=== PATIENT | male | born 1985 | race Two or more races ===

== ENCOUNTER 2020-03-27 22:23 | Inpatient (IN) | payer OTHER ==
[~2020-03-27] VITALS: Ht 177.8 cm; Wt 117.8 kg
[2020-03-28 00:53] LABS: Basophils # (auto) 0 10 ^3/uL (0-0.2); Basophils % (auto) 0.2 % (0.0-2.0); Eosinophils # (auto) 0.2 10 ^3/uL (0-0.8); Eosinophils % (auto) 1.4 % (0.0-7.0); Hematocrit 43.7 % (41.0-53.0); Hemoglobin 14.4 g/dL (13.5-17.5); Lymphocytes # (auto) 0.9 10 ^3/uL (0.4-5.4); Lymphocytes % (auto) 7.4 % (10.0-50.0); Mean Corpuscular Volume 84.9 fL (80.0-100.0); Monocytes # (auto) 1.1 10 ^3/uL (0-1.3); Monocytes % (auto) 8.8 % (0.0-12.0); Neutrophils # (auto) 9.8 10 ^3/uL (1.6-8.6); Neutrophils % (auto) 82.2 % (37.0-80.0); Nucleated Red Blood Cells % 0.1 %; Platelet Count (auto) 382 10^3/uL (140-450); Red Blood Cells 5.14 10^6/uL (4.5-5.90); Red Cell Distribution Width 13.6 % (11.8-14.3); White Blood Cell 11.9 10^3/uL (4.4-10.8)
[2020-03-28] MEDS ORDERED: DOXYCYCLINE 100 MG TAB/CAP PO ONE (01:00)
[2020-03-28] MEDS ORDERED: ASCORBIC ACID 500 MG TAB PO ONE (01:00)
[2020-03-28] MEDS ORDERED: cefTRIAXone 1GM/50ML D5W 50 ML IV ONE (01:00)
[2020-03-28] MEDS ORDERED: methylPREDNISolone SOD SUCC 125 MG/2 ML VL IV ONE (01:00)
[2020-03-28] MEDS ORDERED: SODIUM CHLORIDE 0.9% 1,000 ML IV ONE ×2 (01:00)
[2020-03-28 01:09] LABS: Albumin 2.2 g/dL (3.4-5.0); BUN/Creatinine Ratio 14.5; Calcium 7.8 mg/dL (8.5-10.1); Potassium 3.7 mmol/L (3.5-5.1)
[2020-03-28 01:14] LABS: Bilirubin, Total 0.8 mg/dL (0.2-1.0); Total Protein 7.2 g/dL (6.4-8.2)
[2020-03-28 01:17] LABS: INR 1.24 (0.9-1.15); Partial Thromboplastin Time 24.8 sec (23.0-31.2)
[2020-03-28 01:23] LABS: Urine Bacteria FEW /hpf (None Seen); Urine Blood Negative /uL (Negative); Urine Hyaline Cast FEW /lpf (0 - 2); Urine Mucus FEW (None Seen); Urine Specific Gravity 1.022 (1.001-1.035); Urine WBC 3 /hpf (0 - 3)
[2020-03-28] MEDS ORDERED: ASPirin 81 mg TAB PO ONE (01:45)
[2020-03-28 02:54] LABS: Alcohol, Urine < 3.0 mg/dL (0-10); Amphetamine Screen, Urine NEGATIVE (NEGATIVE); Barbiturate Scree,Urine NEGATIVE (NEGATIVE); Benzodiazephine Screen, Urine NEGATIVE (NEGATIVE); Cannabinoid Screen, Urine NEGATIVE (NEGATIVE); Cocaine Screen, Urine NEGATIVE (NEGATIVE); Opiate Scree,Urine NEGATIVE (NEGATIVE); Phencyclidine Screen, Urine NEGATIVE (NEGATIVE)
[2020-03-28 02:56] LABS: Magnesium 2.5 mg/dL (1.6-2.6)
[2020-03-28] MEDS ORDERED: IOHEXOL 350 MG/ML 100ML IJ ONE (03:02)
[2020-03-28 03:23] LABS: CRP High Sensitivity > 19 mg/dL (< 0.3); Lactate Dehydrogenase 810 U/L (87-241)
[2020-03-28] MEDS ORDERED: DOCUSATE SOD 100 MG CAP PO PRN (06:00)
[2020-03-28] MEDS ORDERED: ACETAMINOPHEN 325 MG TAB PO PRN (06:00)
[2020-03-28] MEDS ORDERED: NITROGLYCERIN 0.4 MG SL TAB SL PRN (06:00)
[2020-03-28] MEDS ORDERED: HYDROcodone-ACET 5/325MG TAB PO PRN (06:00)
[2020-03-28] MEDS ORDERED: MORPHINE SULFATE 4 MG/ML SYR/VIAL IV PRN (06:00)
[2020-03-28] MEDS ORDERED: MORPHINE SULF INJ 2 MG/ML SYRINGE 1ML IV PRN (06:00)
[2020-03-28] MEDS ORDERED: ONDANSETRON HCL 4 MG/2 ML VIAL IV PRN (06:00)
[2020-03-28] MEDS: SODIUM CHLOR 0.9% PF (SALINE LOCK) 10ML VIAL/SYR IV SCH ×3 (07:25→21:46)
[2020-03-28 08:11] LABS: Basophils # (auto) 0 10 ^3/uL (0-0.2); Basophils % (auto) 0.1 % (0.0-2.0); Eosinophils # (auto) 0 10 ^3/uL (0-0.8); Eosinophils % (auto) 0.2 % (0.0-7.0); Hematocrit 42.5 % (41.0-53.0); Lymphocytes # (auto) 0.6 10 ^3/uL (0.4-5.4); Lymphocytes % (auto) 5.3 % (10.0-50.0); Mean Corpuscular Volume 85.1 fL (80.0-100.0); Monocytes # (auto) 0.6 10 ^3/uL (0-1.3); Monocytes % (auto) 5.2 % (0.0-12.0); Neutrophils # (auto) 10.3 10 ^3/uL (1.6-8.6); Neutrophils % (auto) 89.2 % (37.0-80.0); Nucleated Red Blood Cells % 0.1 %; Platelet Count (auto) 353 10^3/uL (140-450); Red Cell Distribution Width 13.5 % (11.8-14.3); White Blood Cell 11.5 10^3/uL (4.4-10.8)
[2020-03-28 08:33] LABS: Albumin 2.1 g/dL (3.4-5.0); BUN/Creatinine Ratio 15.8; Calcium 7.8 mg/dL (8.5-10.1); Potassium 3.8 mmol/L (3.5-5.1)
[2020-03-28 08:38] LABS: Bilirubin, Total 0.7 mg/dL (0.2-1.0); Total Protein 7.1 g/dL (6.4-8.2)
--- NOTE | 2020-03-28 09:00 | NUR ---
Telemetry admit from [facility] admitted to Telemetry unit. Patient oriented to [facility], primary RN, unit, room, bed, and unit policies regarding patient care. Patient able to nod yes and no for simple questions but unable to formulate words or write. Neuro assessment completed and no other deficits noted. Patient on continuous telemetry monitoring, tele box #22 and telemetry reading on arrival to unit is SR 96BPM. Patient on 10L oxygen via simple mask with o2 saturation at 88% and sustaining, patients oxygen increased to 12L for a 91%spo2, weighed by bedscale and encouraged to call if they need something. All questions and concerns addressed, patient verbalized understanding. Note:
[2020-03-28 09:06] VITALS: BP 114/73
--- NOTE | 2020-03-28 09:15 | NUR ---
Patient noted to be cold to touch and diaphoretic, patient denies any dizziness/chills/pain/chest pain. Full assessment completed. Refer to interventions. Patient on 12L mask, with oxygen saturation at 90%,, BP 114/73, HR: 96BPM, RR:18BPM, 97.9T, BS:176
[2020-03-28 10:00] VITALS: BP 114/73
[2020-03-28] MEDS ORDERED: ENOXAPARIN SOD 40 MG/0.4 ML SYRINGE SC SCH (10:00)
[2020-03-28] MEDS: PANTOPRAZOLE 40 MG/10 ML VIAL INJ IV SCH (10:10)
[2020-03-28] MEDS: MULTIPLE VITAMIN TAB PO SCH (10:10)
[2020-03-28] MEDS: ZINC SULFATE 220mg CAP or TAB PO SCH (10:10)
[2020-03-28] MEDS: AZITHROMYCIN 500MG/ 250ML 250 ML IV SCH (10:10)
[2020-03-28] MEDS: ASCORBIC ACID 500 MG TAB PO SCH ×2 (10:10→21:46)
--- NOTE | 2020-03-28 10:30 | NUR ---
EMERGENCY CONTACT Per patients wishes information will be given to girlfriend Yady long and Yady [phone] will relay information to patients sisters.
[2020-03-28 12:26] VITALS: BP 106/70
--- NOTE | 2020-03-28 12:28 | NUR ---
Dr. Peters at bed side. New orders received. Refer to order hx.
[2020-03-28] MEDS ORDERED: REMDESIVIR PER PHARMACY IV SCH (12:30)
[2020-03-28] MEDS ORDERED: DexAMETHasone SOD PHOS 10MG/1ML VIAL INJ IV ONE (12:45)
[2020-03-28] MEDS ORDERED: CHOLECALCIFEROL (VITD3) 2,000 UNIT CAP PO ONE (12:45)
[2020-03-28] MEDS ORDERED: BUDESONIDE (INHALATION) 0.5 MG/2 ML NEB NEB ONE (13:00)
[2020-03-28] MEDS ORDERED: ENOXAPARIN SOD 40 MG/0.4 ML SYRINGE SC ONE (13:15)
[2020-03-28] MEDS ORDERED: methylPREDNISolone SOD SUCC 40 MG/ML VL IV SCH (14:00)
[2020-03-28] MEDS: ALBUTEROL SULF HFA 90MCG INH 200DOSE IN SCH ×2 (14:13→21:46)
--- NOTE | 2020-03-28 15:10 | NUR ---
MD Peters aware of wishes for tx- per MD, "patient is not stable for transfer" Will update family.
--- NOTE | 2020-03-28 15:10 | NUR ---
Received call from steven Conteh, family requesting transfer to [place] Will place MD to notify of patients family wishes
[2020-03-28] MEDS ORDERED: REMDESIVIR 200 MG in NS 210ml LOADING DOSE ADULT IV ONE (17:00)
[2020-03-28 17:20] VITALS: BP 121/93
--- NOTE | 2020-03-28 18:43 | NUR ---
Patient able to speak at this time, pt states, "My voice is coming back slowly".
--- NOTE | 2020-03-28 19:10 | NUR ---
Remdesivir pre vs:109/70, HR:88bpm, RR:20bpm, 90%spo2 15min post vs 101/68, HR:89BPM, RR:20, 91%spo2 post vs:101/66, HR:88BPM, RR:18BPM, 92%spo2
--- NOTE | 2020-03-28 20:15 | NUR ---
Opening Shift Note Assumed care of patient, awake and alert. No S/S of distress/SOB or pain. Pt saturating at 92% on 15L nonrebreather. Pt states that he feels much better. Pt seen with Dr. Harding, neuro checks preformed no S/S of neurological concern per Dr. Harding. Pt able to speak clearly, obey commands and communicate easily. Safety measures in place, bed in lowest locked position, bed rails raised x2, call light within reach. All needs addressed at this time. Instructed on POC and to call for assist PRN, will continue to monitor for changes Q1hr and PRN.
[2020-03-28] MEDS ORDERED: LORazepam 2MG/ML-1ML VIAL IV PRN (21:45)
[2020-03-28] MEDS: BUDESONIDE (INHALATION) 180 MCG IH IN SCH (21:46)
[2020-03-28] MEDS: ENOXAPARIN SOD 80 MG/0.8ML SYRINGE SC SCH (21:47)
[2020-03-28 22:00] VITALS: BP 97/51
[2020-03-28] MEDS ORDERED: BUDESONIDE (INHALATION) 0.5 MG/2 ML NEB NEB SCH (22:00)
[2020-03-28] MEDS ORDERED: PATIENTS OWN MEDICATION (PULMICORT 360 MCG) INH SCH (22:00)
[2020-03-29] VITALS (11 sets, daily range): BP systolic 97–106; BP diastolic 51–69
--- NOTE | 2020-03-29 05:08 | NUR ---
O2 delivery titrated down from 15L to 10L nonrebreather, pt tolerating well, saturating at 97% at this time. Will continue to monitor.
[2020-03-29] MEDS: SODIUM CHLOR 0.9% PF (SALINE LOCK) 10ML VIAL/SYR IV SCH ×3 (05:33→21:43)
[2020-03-29] MEDS: BUDESONIDE (INHALATION) 180 MCG IH IN SCH ×2 (06:46→21:31)
[2020-03-29] MEDS: ALBUTEROL SULF HFA 90MCG INH 200DOSE IN SCH ×3 (06:46→21:31)
[2020-03-29 08:03] LABS: Basophils # (auto) 0 10 ^3/uL (0-0.2); Eosinophils # (auto) 0 10 ^3/uL (0-0.8); Hemoglobin 12.9 g/dL (13.5-17.5); Mean Corpuscular Hemoglobin 27.6 pg (28.0-32.0)
[2020-03-29 08:05] LABS: Hematocrit 40.4 % (41.0-53.0); Lymphocytes # (auto) 1.4 10 ^3/uL (0.4-5.4); Lymphocytes % (auto) 7.9 % (10.0-50.0); Mean Corpuscular Hgb Conc. 31.9 g/dL (32.0-36.0); Mean Corpuscular Volume 86.4 fL (80.0-100.0); Monocytes # (auto) 2.1 10 ^3/uL (0-1.3); Monocytes % (auto) 11.4 % (0.0-12.0); Neutrophils # (auto) 14.6 10 ^3/uL (1.6-8.6); Neutrophils % (auto) 80.7 % (37.0-80.0); Platelet Count (auto) 490 10^3/uL (140-450); Red Blood Cells 4.68 10^6/uL (4.5-5.90); Red Cell Distribution Width 13.7 % (11.8-14.3); White Blood Cell 18.1 10^3/uL (4.4-10.8)
[2020-03-29 08:29] LABS: Potassium 4.4 mmol/L (3.5-5.1)
[2020-03-29 08:37] LABS: BUN/Creatinine Ratio 26.6; Bilirubin, Total 0.5 mg/dL (0.2-1.0); Calcium 8.2 mg/dL (8.5-10.1); Total Protein 6.5 g/dL (6.4-8.2)
[2020-03-29] MEDS: PANTOPRAZOLE 40 MG/10 ML VIAL INJ IV SCH (09:00)
[2020-03-29] MEDS: MULTIPLE VITAMIN TAB PO SCH (09:00)
[2020-03-29] MEDS: ASCORBIC ACID 500 MG TAB PO SCH ×2 (09:00→21:54)
[2020-03-29] MEDS: ZINC SULFATE 220mg CAP or TAB PO SCH (09:00)
[2020-03-29] MEDS: AZITHROMYCIN 500MG/ 250ML 250 ML IV SCH (09:00)
[2020-03-29] MEDS: CHOLECALCIFEROL (VITD3) 2,000 UNIT CAP PO SCH (09:00)
[2020-03-29] MEDS: ENOXAPARIN SOD 80 MG/0.8ML SYRINGE SC SCH ×2 (09:00→21:55)
[2020-03-29] MEDS: DexAMETHasone SOD PHOS 10MG/1ML VIAL INJ IV SCH (10:24)
--- NOTE | 2020-03-29 12:40 | NUR ---
at bed side.
--- NOTE | 2020-03-29 13:59 | NUR ---
Respiratory note: TOOK PATIENT OFF NRB AND PLACED ON 10L OXYMIZER SPO2 95%
[2020-03-29] MEDS ORDERED: REMDESIVIR 100mg in NS 230ml DAILYx4DAYS (NO VENT) IV SCH (17:00)
--- NOTE | 2020-03-29 19:00 | NUR ---
Opening Shift Note Assumed care of patient, awake and alert. No S/S of distress/SOB or pain. Instructed on POC and to call for assist PRN, will continue to monitor for changes Q1hr and PRN. Patient in the lowest possible position with call light within reach. Bed rails up x2.
[2020-03-29] MEDS ORDERED: REMDESIVIR 100mg in NS 230ml DAILYx4DAYS (NO VENT) IV ONE (19:30)
--- NOTE | 2020-03-29 20:45 | NUR ---
Dr. Harding at bedside, no new orders.
--- NOTE | 2020-03-29 22:30 | NUR ---
Remdesivir Pre vital signs- BP 111/64, heart rate 84, pulse ox 93% 15 minutes- Bp 87/35, heart rate 76, pulse ox 93% infusion slowed down to 125ml/hr, patient repositioned and vitals rechecked after 15 minutes, vitals reading 91/62, heart rate 66, pulse ox 92%, Dr Cavanaugh at bedtime and put one time order for 500ml NS bolus and recheck before restarting. Bolus given to patient. Rechecked after bolus: Bp 106/66, heart rate 79, pulse ox 94% Remdesivir restarted at 125ml/hr. Patient vitals taken 15 minutes after restart, Bp 100/56, heart rate 70, pulse ox 92% Continued to monitor patient. Vitals signs post infusion Bp 114/77, heart rate 66, pulse ox 93%.
--- NOTE | 2020-03-29 23:30 | NUR ---
Dr. Cavanaugh at bedside. Patient currently receiving remdesivir with a low blood pressure of 87/35, 500 ml NS bolus to be given and pressure rechecked to finish the medication, will carry out orders.
[2020-03-29] MEDS ORDERED: SODIUM CHLORIDE 0.9% 500 ML IV ONE (23:45)
[2020-03-30 05:00] VITALS: BP 122/72
[2020-03-30 06:24] LABS: Basophils # (auto) 0 10 ^3/uL (0-0.2); Eosinophils # (auto) 0 10 ^3/uL (0-0.8); Eosinophils % (auto) 0.3 % (0.0-7.0); Monocytes # (auto) 1.2 10 ^3/uL (0-1.3); Nucleated Red Blood Cells % 0.1 %; White Blood Cell 11.7 10^3/uL (4.4-10.8)
[2020-03-30 06:27] LABS: Basophils % (auto) 0.2 % (0.0-2.0); Hemoglobin 12.6 g/dL (13.5-17.5); Lymphocytes # (auto) 1.7 10 ^3/uL (0.4-5.4); Lymphocytes % (auto) 14.2 % (10.0-50.0); Mean Corpuscular Hemoglobin 27.9 pg (28.0-32.0); Mean Corpuscular Hgb Conc. 32.2 g/dL (32.0-36.0); Mean Corpuscular Volume 86.4 fL (80.0-100.0); Monocytes % (auto) 10.2 % (0.0-12.0); Neutrophils # (auto) 8.8 10 ^3/uL (1.6-8.6); Neutrophils % (auto) 75.1 % (37.0-80.0); Platelet Count (auto) 477 10^3/uL (140-450); Red Blood Cells 4.51 10^6/uL (4.5-5.90); Red Cell Distribution Width 14.1 % (11.8-14.3)
[2020-03-30 06:43] LABS: Calcium 7.7 mg/dL (8.5-10.1); Potassium 4.1 mmol/L (3.5-5.1)
[2020-03-30 06:46] LABS: Albumin 2.1 g/dL (3.4-5.0); BUN/Creatinine Ratio 25.7
[2020-03-30 06:49] LABS: Bilirubin, Total 0.4 mg/dL (0.2-1.0); Total Protein 6.4 g/dL (6.4-8.2)
[2020-03-30] MEDS: ALBUTEROL SULF HFA 90MCG INH 200DOSE IN SCH ×3 (06:49→22:59)
[2020-03-30] MEDS: BUDESONIDE (INHALATION) 180 MCG IH IN SCH ×2 (06:49→22:58)
[2020-03-30] MEDS: SODIUM CHLOR 0.9% PF (SALINE LOCK) 10ML VIAL/SYR IV SCH ×3 (07:00→22:11)
[2020-03-30 09:00] VITALS: BP 104/68
[2020-03-30] MEDS: DexAMETHasone SOD PHOS 10MG/1ML VIAL INJ IV SCH (10:03)
[2020-03-30] MEDS: PANTOPRAZOLE 40 MG/10 ML VIAL INJ IV SCH (10:03)
[2020-03-30] MEDS: ZINC SULFATE 220mg CAP or TAB PO SCH (10:04)
[2020-03-30] MEDS: CHOLECALCIFEROL (VITD3) 2,000 UNIT CAP PO SCH (10:04)
[2020-03-30] MEDS: MULTIPLE VITAMIN TAB PO SCH (10:04)
[2020-03-30] MEDS: AZITHROMYCIN 500MG/ 250ML 250 ML IV SCH (10:04)
[2020-03-30] MEDS: ASCORBIC ACID 500 MG TAB PO SCH ×2 (10:04→22:15)
[2020-03-30] MEDS: ENOXAPARIN SOD 80 MG/0.8ML SYRINGE SC SCH ×2 (10:04→22:15)
--- NOTE | 2020-03-30 12:00 | NUR ---
DR. NASCIMENTO AT BED SIDE
[2020-03-30 13:00] VITALS: BP 103/60
--- NOTE | 2020-03-30 15:00 | NUR ---
o2 titrated down to 8L via oxymizer, saturations maintaining >93%
[2020-03-30 17:00] VITALS: BP 107/74
[2020-03-30] MEDS: REMDESIVIR 100mg in NS 230ml DAILYx4DAYS (NO VENT) IV SCH (17:16)
--- NOTE | 2020-03-30 18:15 | NUR ---
Remdesivir pre vs:107/67, HR:70bpm, RR:20bpm, 94%spo2 15min post vs 106/73, HR:72BPM, RR:18, 94%spo2 post vs:105/66, HR:88BPM, RR:18BPM, 95%spo2
[2020-03-30 22:00] VITALS: BP 103/66
[2020-03-31 05:00] VITALS: BP 108/77
[2020-03-31] MEDS: ALBUTEROL SULF HFA 90MCG INH 200DOSE IN SCH ×3 (06:31→22:00)
[2020-03-31] MEDS: BUDESONIDE (INHALATION) 180 MCG IH IN SCH ×2 (06:31→22:00)
[2020-03-31 09:00] VITALS: BP 87/61
--- NOTE | 2020-03-31 10:30 | NUR ---
Patient family updated.
[2020-03-31] MEDS: PANTOPRAZOLE 40 MG/10 ML VIAL INJ IV SCH (10:59)
[2020-03-31] MEDS: DexAMETHasone SOD PHOS 10MG/1ML VIAL INJ IV SCH (10:59)
[2020-03-31] MEDS: AZITHROMYCIN 500MG/ 250ML 250 ML IV SCH (10:59)
[2020-03-31] MEDS: ZINC SULFATE 220mg CAP or TAB PO SCH (11:00)
[2020-03-31] MEDS: MULTIPLE VITAMIN TAB PO SCH (11:00)
[2020-03-31] MEDS: ENOXAPARIN SOD 80 MG/0.8ML SYRINGE SC SCH ×2 (11:00→22:31)
[2020-03-31] MEDS: CHOLECALCIFEROL (VITD3) 2,000 UNIT CAP PO SCH (11:00)
[2020-03-31] MEDS: ASCORBIC ACID 500 MG TAB PO SCH ×2 (11:00→22:31)
[2020-03-31] MEDS: SODIUM CHLOR 0.9% PF (SALINE LOCK) 10ML VIAL/SYR IV SCH ×3 (11:01→22:30)
--- NOTE | 2020-03-31 12:30 | NUR ---
Patient family updated.
[2020-03-31 13:00] VITALS: BP 94/52
--- NOTE | 2020-03-31 14:32 | NUR ---
Nutrition Assessment Note please see attached link for complete assessment Est [employer] needs ABW 100 [id number] kcals (17-20 kcal/kgABW), Est Protein needs: 100-111 gms/day (1.0-1.1 gm/kgABW). Will continue to monitor and reassess prn. Addendum: 03/31/20 at [address] Amended: Links added.
--- NOTE | 2020-03-31 16:00 | NUR ---
Respiratory note: Respiratory note: MDI MISSED DUE TO NO THERAPIST AVAILABLE. PT IN NO DISTRESS AT THIS TIME. PT AWARE TO HAVE RT PAGED IF SOB.
[2020-03-31 17:00] VITALS: BP 96/57
[2020-03-31] MEDS: REMDESIVIR 100mg in NS 230ml DAILYx4DAYS (NO VENT) IV SCH (17:08)
--- NOTE | 2020-03-31 19:05 | NUR ---
Opening Shift Note Assumed care of patient, awake and alert. No S/S of distress/SOB or pain. Safety measures in place, bed in lowest locked position, bed rails raised x2, call light within reach. All needs addressed at this time. Pt saturating at 92% on 8L oxymizer. Instructed on POC and to call for assist PRN, will continue to monitor for changes Q1hr and PRN.
--- NOTE | 2020-03-31 20:00 | NUR ---
Dr. Harding at bedside. Spoke with patient regarding CT results. No new orders received at this time.
[2020-03-31] MEDS: SODIUM CHLORIDE 0.9% 1,000 ML IV SCH (21:00)
[2020-04-01 02:53] VITALS: BP 96/57
[2020-04-01] MEDS: SODIUM CHLOR 0.9% PF (SALINE LOCK) 10ML VIAL/SYR IV SCH ×3 (05:30→21:30)
[2020-04-01 06:00] VITALS: BP 96/62
[2020-04-01] MEDS: ALBUTEROL SULF HFA 90MCG INH 200DOSE IN SCH ×3 (06:13→21:57)
[2020-04-01] MEDS: BUDESONIDE (INHALATION) 180 MCG IH IN SCH ×2 (06:14→21:57)
[2020-04-01] MEDS: SODIUM CHLORIDE 0.9% 1,000 ML IV SCH ×2 (07:02→16:07)
[2020-04-01 07:20] LABS: Eosinophils # (auto) 0.1 10 ^3/uL (0-0.8); Hemoglobin 13.7 g/dL (13.5-17.5); Lymphocytes # (auto) 2.2 10 ^3/uL (0.4-5.4)
[2020-04-01 07:23] LABS: Basophils # (auto) 0.2 10 ^3/uL (0-0.2); Basophils % (auto) 1.3 % (0.0-2.0); Eosinophils % (auto) 0.4 % (0.0-7.0); Hematocrit 43.1 % (41.0-53.0); Mean Corpuscular Hemoglobin 27.5 pg (28.0-32.0); Mean Corpuscular Hgb Conc. 31.7 g/dL (32.0-36.0); Mean Corpuscular Volume 86.9 fL (80.0-100.0); Monocytes # (auto) 1.5 10 ^3/uL (0-1.3); Neutrophils # (auto) 14.4 10 ^3/uL (1.6-8.6); Neutrophils % (auto) 78.3 % (37.0-80.0); Nucleated Red Blood Cells % 0.7 %; Platelet Count (auto) 612 10^3/uL (140-450); Red Blood Cells 4.96 10^6/uL (4.5-5.90); Red Cell Distribution Width 13.9 % (11.8-14.3); White Blood Cell 18.4 10^3/uL (4.4-10.8)
[2020-04-01 07:37] LABS: BUN/Creatinine Ratio 27.9; Calcium 8.6 mg/dL (8.5-10.1); Cholesterol 124 mg/dL (< 200); Potassium 5.1 mmol/L (3.5-5.1)
[2020-04-01 07:40] LABS: HDL Cholesterol 26 mg/dL (40-59); LDL Cholesterol 79 mg/dL (< 100); Triglycerides 111 mg/dL (< 150)
[2020-04-01 09:00] VITALS: BP 85/56
[2020-04-01] MEDS: DexAMETHasone SOD PHOS 10MG/1ML VIAL INJ IV SCH (10:02)
[2020-04-01] MEDS: AZITHROMYCIN 500MG/ 250ML 250 ML IV SCH (10:02)
[2020-04-01] MEDS: PANTOPRAZOLE 40 MG/10 ML VIAL INJ IV SCH (10:02)
[2020-04-01] MEDS: ASCORBIC ACID 500 MG TAB PO SCH ×2 (10:02→21:30)
[2020-04-01] MEDS: ZINC SULFATE 220mg CAP or TAB PO SCH (10:02)
[2020-04-01] MEDS: MULTIPLE VITAMIN TAB PO SCH (10:02)
[2020-04-01] MEDS: ENOXAPARIN SOD 80 MG/0.8ML SYRINGE SC SCH ×2 (10:03→21:30)
[2020-04-01] MEDS: CHOLECALCIFEROL (VITD3) 2,000 UNIT CAP PO SCH (10:03)
[2020-04-01 12:33] VITALS: BP 110/53
[2020-04-01] MEDS: REMDESIVIR 100mg in NS 230ml DAILYx4DAYS (NO VENT) IV SCH (16:39)
[2020-04-01 16:50] VITALS: BP 113/71
--- NOTE | 2020-04-01 19:05 | NUR ---
Opening Shift Note Assumed care of patient, awake and alert. No S/S of distress/SOB or pain. Safety measures in place, bed in lowest locked position, bed rails raised x2, call light within reach. All needs addressed at this time. Instructed on POC and to call for assist PRN, will continue to monitor for changes Q1hr and PRN.
[2020-04-01 22:00] VITALS: BP 115/72
[2020-04-02] MEDS: SODIUM CHLORIDE 0.9% 1,000 ML IV SCH (03:00)
[2020-04-02] MEDS: SODIUM CHLOR 0.9% PF (SALINE LOCK) 10ML VIAL/SYR IV SCH ×2 (05:44→14:00)
[2020-04-02] MEDS: ALBUTEROL SULF HFA 90MCG INH 200DOSE IN SCH ×3 (06:00→21:04)
[2020-04-02 06:01] VITALS: BP 93/49
[2020-04-02 09:05] VITALS: BP 87/54
[2020-04-02] MEDS: BUDESONIDE (INHALATION) 180 MCG IH IN SCH ×2 (09:29→21:04)
[2020-04-02] MEDS: ASCORBIC ACID 500 MG TAB PO SCH ×2 (10:00→21:18)
[2020-04-02] MEDS: DexAMETHasone SOD PHOS 10MG/1ML VIAL INJ IV SCH (10:23)
[2020-04-02] MEDS: AZITHROMYCIN 500MG/ 250ML 250 ML IV SCH (10:24)
[2020-04-02] MEDS: PANTOPRAZOLE 40 MG/10 ML VIAL INJ IV SCH (10:24)
[2020-04-02] MEDS: ZINC SULFATE 220mg CAP or TAB PO SCH (10:25)
[2020-04-02] MEDS: CHOLECALCIFEROL (VITD3) 2,000 UNIT CAP PO SCH (10:25)
[2020-04-02] MEDS: MULTIPLE VITAMIN TAB PO SCH (10:25)
[2020-04-02] MEDS: ENOXAPARIN SOD 80 MG/0.8ML SYRINGE SC SCH ×2 (10:26→21:18)
[2020-04-02] MEDS ORDERED: PANTOPRAZOLE 40 MG TAB PO ONE (12:00)
[2020-04-02 13:03] VITALS: BP 90/55
[2020-04-02 17:00] VITALS: BP 94/59
--- NOTE | 2020-04-02 21:37 | NUR ---
ambulated to toilet Patient ambulated to toilet with assistance of this RN on a portable oxygen tank. Patient gait steady. Patient was 8L O2 via Oxymizer, saturation prior to physical activity 93%. Saturation dropped to 87% as patient was ambulating to toilet. O2 on portable oxygen tank bumped up to 10L, O2 saturation increased to 92%. Patient informed to use the call light when ready to ambulate back to his bed, patient verbalized understanding.
[2020-04-02 22:00] VITALS: BP 89/60
--- NOTE | 2020-04-03 03:18 | NUR ---
resumed care of patient Report received from Marianne Crowley
--- NOTE | 2020-04-03 04:18 | NUR ---
Rounds Patient is comfortably resting, on 6L Oxymizer Sp02 at 93%. Breath sounds even and unlabored. No s/s of distress/sob noted/stated. Bed at lowest locked position and call light within reach. Will continue to monitor.
[2020-04-03 05:00] VITALS: BP 90/52
[2020-04-03] MEDS: SODIUM CHLOR 0.9% PF (SALINE LOCK) 10ML VIAL/SYR IV SCH ×3 (06:00→22:46)
[2020-04-03] MEDS: ALBUTEROL SULF HFA 90MCG INH 200DOSE IN SCH (06:43)
[2020-04-03] MEDS: BUDESONIDE (INHALATION) 180 MCG IH IN SCH ×2 (06:43→21:03)
--- NOTE | 2020-04-03 07:20 | NUR ---
PATIENT TAKEN DOWN TO RADIOLOGY Addendum: 04/03/20 at 0737 by Eneida Arteaga RN PATIENT BACK FROM RADIOLOGY, NO S/S OF DISTRESS/SOB NOTED/STATED.
[2020-04-03 07:34] LABS: Basophils # (auto) 0 10 ^3/uL (0-0.2); Mean Corpuscular Hgb Conc. 32.5 g/dL (32.0-36.0); Monocytes % (auto) 7.9 % (0.0-12.0); Neutrophils # (auto) 9.6 10 ^3/uL (1.6-8.6); Nucleated Red Blood Cells % 0.2 %; Red Blood Cells 5.08 10^6/uL (4.5-5.90)
[2020-04-03 07:35] LABS: Basophils % (auto) 0.3 % (0.0-2.0); Eosinophils # (auto) 0.2 10 ^3/uL (0-0.8); Eosinophils % (auto) 1.2 % (0.0-7.0); Hematocrit 44.1 % (41.0-53.0); Hemoglobin 14.3 g/dL (13.5-17.5); Lymphocytes # (auto) 2.1 10 ^3/uL (0.4-5.4); Lymphocytes % (auto) 16.4 % (10.0-50.0); Mean Corpuscular Hemoglobin 28.2 pg (28.0-32.0); Mean Corpuscular Volume 86.7 fL (80.0-100.0); Neutrophils % (auto) 74.2 % (37.0-80.0); Platelet Count (auto) 746 10^3/uL (140-450); Red Cell Distribution Width 14.2 % (11.8-14.3)
--- NOTE | 2020-04-03 07:35 | NUR ---
Opening Shift Note Received report from PACO Lal, Assumed care of patient, awake and alert. Oxymizer in place set at 6L, No S/S of distress/SOB. No report of pain stated by patient. Instructed on POC and to call for assist PRN, will continue to monitor for changes Q1hr and PRN. Bed in lowest position, call light within reach.
[2020-04-03 09:00] VITALS: BP 102/58
[2020-04-03] MEDS ORDERED: PANTOPRAZOLE 40 MG TAB PO SCH (10:00)
[2020-04-03] MEDS: CHOLECALCIFEROL (VITD3) 2,000 UNIT CAP PO SCH (10:29)
[2020-04-03] MEDS: DexAMETHasone SOD PHOS 10MG/1ML VIAL INJ IV SCH (10:29)
[2020-04-03] MEDS: ASCORBIC ACID 500 MG TAB PO SCH ×2 (10:29→22:47)
[2020-04-03] MEDS: MULTIPLE VITAMIN TAB PO SCH (10:29)
[2020-04-03] MEDS: PANTOPRAZOLE 40 MG TAB PO SCH (10:29)
[2020-04-03] MEDS: AZITHROMYCIN 500MG/ 250ML 250 ML IV SCH (10:29)
[2020-04-03] MEDS: ZINC SULFATE 220mg CAP or TAB PO SCH (10:29)
[2020-04-03] MEDS: ENOXAPARIN SOD 80 MG/0.8ML SYRINGE SC SCH (10:29)
--- NOTE | 2020-04-03 11:14 | NUR ---
PHONE CALL WITH LIA AT [facility] SPOKE WITH LIA FROM [facility] FOR FOLLOW UP ON PATIENT STATUS.
--- NOTE | 2020-04-03 12:35 | NUR ---
Nutrition Followup Notes Pt wt is 120.0 kg Pt is positive for COVID, and unable to reach by phone. Pt is with a 2gm Sodium diet, appetite is good aeb ave 96% x 5 PO intake per RN doc. Est [employer] needs ABW 100 [id number] kcals (17-20 kcal/kgABW), Est Protein needs: 100-111 gms/day (1.0-1.1 gm/kgABW). Will continue to monitor and reassess prn. LABS: Alb 2.1 L GI: Pt with no BM today per RN doc BS: 20 low risk. Refer to wound assessment report for further details. PES: Decreased nutrient needs r/t adiposity aeb pt`s high BMI of 39.6 kgm2 Altered nutrition related lab values r.t current chronic medical condition aeb severe hypoalb hypocalcemia Comments Will continue to monitor PO status, skin status, pertinent labs and weight trends. Will f/u in 2-3 days 1) Consider Prostat 1 packet bid 2) Refer to [facility] dietitian on DC 3) Continue current plan fo care
[2020-04-03 13:00] VITALS: BP 90/64
--- NOTE | 2020-04-03 14:41 | NUR ---
Patient encouraged to lay in prone position. Patient currently in prone position. Patient tolerating well.
--- NOTE | 2020-04-03 15:33 | NUR ---
updated patient's Girlfriend, after password was verified. Girlfriend Yady requests to speak to the MD. Left a note in the chart for tomorrow. Yady [phone]
[2020-04-03 17:00] VITALS: BP 122/97
--- NOTE | 2020-04-03 19:00 | NUR ---
Opening Shift Note Assumed care of patient, awake and alert. No S/S of distress/SOB or pain. Patient on 2L O2 via NC. Safety measures in place bed in lowest position, side rails up x2, and call light within reach. Instructed on POC and to call for assist PRN, will continue to monitor for changes Q1hr and PRN. Addendum: 04/04/20 at 0447 by BLANCA ALSTON RN RN Patient on 5L O2 via oxymizer.
[2020-04-03] MEDS: ALBUTEROL SULF HFA 90MCG INH 200DOSE IN PRN (21:03)
[2020-04-03 22:00] VITALS: BP 103/66
[2020-04-04 05:31] VITALS: BP 90/63
[2020-04-04] MEDS: SODIUM CHLOR 0.9% PF (SALINE LOCK) 10ML VIAL/SYR IV SCH ×3 (06:48→22:48)
[2020-04-04] MEDS: ALBUTEROL SULF HFA 90MCG INH 200DOSE IN PRN (07:10)
[2020-04-04] MEDS: BUDESONIDE (INHALATION) 180 MCG IH IN SCH ×2 (07:10→22:00)
--- NOTE | 2020-04-04 07:55 | NUR ---
Opening Shift Note Received report from manufacturing supervisor 2nd shift RN, Assumed care of patient, awake and alert. Oxymizer in place set at 4L, No S/S of distress/SOB or pain. Instructed on POC and to call for assist PRN, will continue to monitor for changes Q1hr and PRN.
[2020-04-04 08:10] VITALS: BP 85/54
[2020-04-04 08:15] VITALS: BP 85/56
--- NOTE | 2020-04-04 08:40 | NUR ---
Blood Pressure Patients blood pressure is 85/54 and after re-assessing, 84/59, patient is asymptomatic. Patient is alertx4. No c/o dizziness and or weakness. Elevated feet up and encouraged an increase on fluid intake. Educated patient to use call light before getting out of bed. Will continue to monitor PRN.
--- NOTE | 2020-04-04 09:40 | NUR ---
Blood Pressure rechecked Blood pressure increase to 115/69, after encouraging fluid intake and elevating the legs. Per patient not feeling dizzy or SOB. Will continue to monitor.
[2020-04-04] MEDS: PANTOPRAZOLE 40 MG TAB PO SCH (09:49)
[2020-04-04] MEDS: DexAMETHasone SOD PHOS 10MG/1ML VIAL INJ IV SCH (09:49)
[2020-04-04] MEDS: ASCORBIC ACID 500 MG TAB PO SCH ×2 (09:49→22:48)
[2020-04-04] MEDS: CHOLECALCIFEROL (VITD3) 2,000 UNIT CAP PO SCH (09:49)
[2020-04-04] MEDS: MULTIPLE VITAMIN TAB PO SCH (09:49)
[2020-04-04] MEDS: AZITHROMYCIN 250 MG TAB PO SCH (09:49)
[2020-04-04] MEDS: ASPirin 81 mg TAB PO SCH (09:49)
[2020-04-04] MEDS: ZINC SULFATE 220mg CAP or TAB PO SCH (09:49)
[2020-04-04 12:30] VITALS: BP_SYST 110; BP_SYST 97; BP_DIAS 56; BP_DIAS 66
--- NOTE | 2020-04-04 12:30 | NUR ---
Oxygen titrated patient's oxygen to 3.5 L on the Oxymizer. spo2 at 92%. No s/s of distress/sob noted/stated. will continue to monitor PRN.
[2020-04-04 17:00] VITALS: BP 110/66
--- NOTE | 2020-04-04 19:00 | NUR ---
Opening Shift Note Assumed care of patient, awake and alert. No S/S of distress/SOB or pain. Patient safety measures in place bed in lowest position, side rails up x2, and call light within reach. Instructed on POC and to call for assist PRN, will continue to monitor for changes Q1hr and PRN.
--- NOTE | 2020-04-04 21:31 | NUR ---
Yady called for an update. Requesting a follow up call from the doctors. Addendum: 04/04/20 at 2135 by BLANCA ALSTON RN RN Password verified.
[2020-04-04 22:00] VITALS: BP 101/68
[2020-04-05 05:22] VITALS: BP 104/69
[2020-04-05] MEDS: SODIUM CHLOR 0.9% PF (SALINE LOCK) 10ML VIAL/SYR IV SCH ×3 (05:43→21:43)
[2020-04-05] MEDS: BUDESONIDE (INHALATION) 180 MCG IH IN SCH ×2 (07:14→19:55)
[2020-04-05 08:20] VITALS: BP 84/54
[2020-04-05] MEDS: DexAMETHasone 4 MG TAB PO SCH (10:07)
[2020-04-05] MEDS: ZINC SULFATE 220mg CAP or TAB PO SCH (10:07)
[2020-04-05] MEDS: ASPirin 81 mg TAB PO SCH (10:07)
[2020-04-05] MEDS: PANTOPRAZOLE 40 MG TAB PO SCH (10:08)
[2020-04-05] MEDS: CHOLECALCIFEROL (VITD3) 2,000 UNIT CAP PO SCH (10:08)
[2020-04-05] MEDS: ASCORBIC ACID 500 MG TAB PO SCH ×2 (10:08→21:43)
[2020-04-05] MEDS: AZITHROMYCIN 250 MG TAB PO SCH (10:08)
[2020-04-05] MEDS: MULTIPLE VITAMIN TAB PO SCH (10:08)
--- NOTE | 2020-04-05 12:15 | NUR ---
Patient titrated down O2 and placed in NC Patient titrated from 3.5 L O2 via Oxymizer to 3.0 L O2 via NC. Patient O2 saturation sustained at 96% before and after the change of oxygen delivery device. Patient was asked to ambulate around the room and O2 sat assessed after 5 min of light activity, O2 saturation dropped to 92% and went back to baseline of 96% after a minute or so. Patient left at this time on 3L O2 via NC. Patient informed of s/s of low oxygen saturation and informed to use call light if SOB occurs so O2 saturation can be reassessed, patient verbalized understanding.
[2020-04-05 12:17] VITALS: BP 90/64
[2020-04-05] MEDS: ALBUTEROL SULF HFA 90MCG INH 200DOSE IN PRN ×2 (15:49→19:56)
[2020-04-05 16:37] VITALS: BP 98/70
--- NOTE | 2020-04-05 18:40 | NUR ---
Family update provided Yady (girlfriend) called to request update on patient condition. Update given after password in account verified. All questions and concerns addressed at this time.
--- NOTE | 2020-04-05 19:05 | NUR ---
Opening Shift Note Assumed care of patient, awake and alert. No S/S of distress/SOB or pain. Patient safety measures in place side rails up x2, bed in lowest position, and call light within reach. Instructed on POC and to call for assist PRN, will continue to monitor for changes Q1hr and PRN.
[2020-04-05 21:39] VITALS: BP 95/64
[2020-04-06 05:00] VITALS: BP 96/60
[2020-04-06] MEDS: SODIUM CHLOR 0.9% PF (SALINE LOCK) 10ML VIAL/SYR IV SCH ×3 (05:50→22:09)
[2020-04-06 05:54] LABS: Basophils # (auto) 0 10 ^3/uL (0-0.2); Basophils % (auto) 0.3 % (0.0-2.0); Eosinophils # (auto) 0.2 10 ^3/uL (0-0.8); Monocytes # (auto) 1.1 10 ^3/uL (0-1.3)
[2020-04-06 05:58] LABS: Eosinophils % (auto) 1.5 % (0.0-7.0); Hematocrit 42.5 % (41.0-53.0); Hemoglobin 13.6 g/dL (13.5-17.5); Lymphocytes # (auto) 1.9 10 ^3/uL (0.4-5.4); Lymphocytes % (auto) 16.3 % (10.0-50.0); Mean Corpuscular Hemoglobin 27.8 pg (28.0-32.0); Mean Corpuscular Hgb Conc. 32.1 g/dL (32.0-36.0); Mean Corpuscular Volume 86.7 fL (80.0-100.0); Monocytes % (auto) 9.4 % (0.0-12.0); Neutrophils # (auto) 8.4 10 ^3/uL (1.6-8.6); Neutrophils % (auto) 72.5 % (37.0-80.0); Nucleated Red Blood Cells % 0.2 %; Platelet Count (auto) 534 10^3/uL (140-450); Red Cell Distribution Width 14.1 % (11.8-14.3); White Blood Cell 11.7 10^3/uL (4.4-10.8)
[2020-04-06 06:19] LABS: Potassium 4.2 mmol/L (3.5-5.1)
[2020-04-06 06:56] LABS: Albumin 2.9 g/dL (3.4-5.0); BUN/Creatinine Ratio 23.8; Bilirubin, Total 0.6 mg/dL (0.2-1.0); Calcium 8.7 mg/dL (8.5-10.1); Magnesium 2.7 mg/dL (1.6-2.6); Total Protein 7.1 g/dL (6.4-8.2)
[2020-04-06] MEDS: BUDESONIDE (INHALATION) 180 MCG IH IN SCH ×2 (07:33→20:16)
[2020-04-06 09:00] VITALS: BP 95/63
[2020-04-06] MEDS: DexAMETHasone 4 MG TAB PO SCH (11:05)
[2020-04-06] MEDS: ASPirin 81 mg TAB PO SCH (11:05)
[2020-04-06] MEDS: ZINC SULFATE 220mg CAP or TAB PO SCH (11:05)
[2020-04-06] MEDS: CHOLECALCIFEROL (VITD3) 2,000 UNIT CAP PO SCH (11:06)
[2020-04-06] MEDS: ASCORBIC ACID 500 MG TAB PO SCH ×2 (11:06→22:09)
[2020-04-06] MEDS: MULTIPLE VITAMIN TAB PO SCH (11:06)
[2020-04-06] MEDS: PANTOPRAZOLE 40 MG TAB PO SCH (11:06)
[2020-04-06] MEDS: AZITHROMYCIN 250 MG TAB PO SCH (11:06)
--- NOTE | 2020-04-06 12:34 | NUR ---
Nutrition Followup Notes Wt: 120.0 kg Pt is positive for COVID, no distress noted. Pt is with a 2gm Sodium diet, with adequate PO of > 75% x 4 per RN doc. Est Energy needs ABW 100 [id number] kcals (17-20 kcal/kgABW), Est Protein needs: 100-111 gms/day (1.0-1.1 gm/kgABW). Will continue to monitor and reassess prn. LABS: BUN 19 H ALB 2.9 L GI: Pt had 1 BM today per RN doc BS: 20 low risk. Refer to wound assessment report for further details. PES: Decreased nutrient needs r/t adiposity aeb pt`s high BMI of 39.6 kgm2 Altered nutrition related lab values r.t current chronic medical condition aeb severe hypoalb hypocalcemia Comments: Will continue to monitor PO status, skin status, pertinent labs and weight trends. Will f/u in 3-5 days 1) Consider Prostat 1 packet bid 2) Refer to [facility] dietitian on DC 3) Continue current plan fo care
[2020-04-06 13:00] VITALS: BP 96/70
[2020-04-06 17:00] VITALS: BP 94/60
--- NOTE | 2020-04-06 19:40 | NUR ---
Opening Shift Note Assumed care of patient, awake and alert. No S/S of distress/SOB or pain. Updated on POC and to call for assist PRN, patient verbalized understanding. Bed in safety position, call light within reach, will continue to monitor for changes Q1hr and PRN.
[2020-04-06] MEDS: ALBUTEROL SULF HFA 90MCG INH 200DOSE IN PRN (20:16)
[2020-04-06 22:00] VITALS: BP 97/53
[2020-04-07 05:00] VITALS: BP 89/55
[2020-04-07] MEDS: SODIUM CHLOR 0.9% PF (SALINE LOCK) 10ML VIAL/SYR IV SCH ×2 (06:32→14:00)
[2020-04-07] MEDS: BUDESONIDE (INHALATION) 180 MCG IH IN SCH (06:45)
[2020-04-07 06:58] LABS: Basophils # (auto) 0 10 ^3/uL (0-0.2); Basophils % (auto) 0.4 % (0.0-2.0); Eosinophils # (auto) 0.2 10 ^3/uL (0-0.8); Monocytes # (auto) 0.9 10 ^3/uL (0-1.3); Nucleated Red Blood Cells % 0.1 %
[2020-04-07 07:03] LABS: Eosinophils % (auto) 1.5 % (0.0-7.0); Hematocrit 42.8 % (41.0-53.0); Lymphocytes % (auto) 18.5 % (10.0-50.0); Mean Corpuscular Hemoglobin 28.2 pg (28.0-32.0); Mean Corpuscular Hgb Conc. 32.6 g/dL (32.0-36.0); Mean Corpuscular Volume 86.3 fL (80.0-100.0); Monocytes % (auto) 8.3 % (0.0-12.0); Neutrophils # (auto) 7.8 10 ^3/uL (1.6-8.6); Neutrophils % (auto) 71.3 % (37.0-80.0); Platelet Count (auto) 500 10^3/uL (140-450); Red Blood Cells 4.96 10^6/uL (4.5-5.90); Red Cell Distribution Width 13.5 % (11.8-14.3)
[2020-04-07 08:00] VITALS: BP 103/68
[2020-04-07] MEDS: ASCORBIC ACID 500 MG TAB PO SCH (09:16)
[2020-04-07] MEDS: AZITHROMYCIN 250 MG TAB PO SCH (09:16)
[2020-04-07] MEDS: MULTIPLE VITAMIN TAB PO SCH (09:16)
[2020-04-07] MEDS: ASPirin 81 mg TAB PO SCH (09:16)
[2020-04-07] MEDS: PANTOPRAZOLE 40 MG TAB PO SCH (09:16)
[2020-04-07] MEDS: ZINC SULFATE 220mg CAP or TAB PO SCH (09:16)
[2020-04-07] MEDS: CHOLECALCIFEROL (VITD3) 2,000 UNIT CAP PO SCH (09:16)
[2020-04-07] MEDS: DexAMETHasone 4 MG TAB PO SCH (09:17)
--- NOTE | 2020-04-07 11:57 | NUR ---
at bedside MD Peters at bedside, aware of patient's status including decreased BP 90/59. Awaiting new orders for dc today and prescriptions. Patient verbalized understanding.
[2020-04-07 12:00] VITALS: BP 90/59
--- NOTE | 2020-04-07 17:11 | NUR ---
Discharge instructions given as ordered. Encourage to follow up with PMD as instructed. All questions and concerns addressed. Patient verbalized understanding. Medication reconciliation form completed and copy given to patient. IV removed with catheter intact, pressure dressing applied. Telemetry unit returned to ICU. Patient taken to vehicle via wheelchair with all personal belongings, accompanied by staff. No distress noted at time of departure.
== END 2020-04-07 17:10 | disposition home or self-care (01) | DRG 871 ==
LOC: ER 22:28 → TELE 22:29 → TELE-E-ADS 03-28 09:00
PROVIDERS: ADMIT Nurse Practitioner Family; ATTEND Internal Medicine
PROC: XW033E5 Introduction of Remdesivir Anti-infective into Peripheral Vein, Percutaneous Approach, New Technology Group 5 (ICD-10-PCS; principal; 2020-03-28)
PROC: XW13325 Transfusion of Convalescent Plasma (Nonautologous) into Peripheral Vein, Percutaneous Approach, New Technology Group 5 (ICD-10-PCS; 2020-03-29)
DX: A41.89 Other specified sepsis (principal); U07.1 COVID-19; J12.89 Other viral pneumonia; J96.01 Acute respiratory failure with hypoxia; I63.9 Cerebral infarction, unspecified; G93.1 Anoxic brain damage, not elsewhere classified; R47.01 Aphasia; E86.0 Dehydration; E66.01 Morbid (severe) obesity due to excess calories; Z79.82 Long term (current) use of aspirin; Z79.899 Other long term (current) drug therapy; Z83.3 Family history of diabetes mellitus; Z86.19 Personal history of other infectious and parasitic diseases; Z87.01 Personal history of pneumonia (recurrent); R29.700 NIHSS score 0; Z68.37 Body mass index [BMI] 37.0-37.9, adult; R47.81 Slurred speech
CPT/HCPCS: 36415; 36600; 70450; 70496; 70498; 71045; 71275; 80048; 80053; 80061; 80307; 81001; 81241; 82140; 82728; 82805; 82962; 83605; 83615; 83735; 83880; 84443; 84484; 84702; 85025; 85301; 85302; 85303; 85305; 85306; 85379; 85610; 85613; 85670; 85705; 85730; 85732; 86141; 86147; 86850; 86900; 86901; 87426; 93005; 94640; 96361; 96365; 96372; 96375; 99291; C9113; G0378; J0696; J1100